=== PATIENT | male | born 1955 | race Asian ===

== ENCOUNTER 2023-04-26 09:04 | Emergency (ER) | payer MEDICARE, SELFPAY ==
[2023-04-26] VITALS (38 sets, daily range): BP systolic 130–194; BP diastolic 68–87; PULSE 52–64; RESP 16; TEMP 35.9; O2SAT 94–100; BMI 23.6
--- NOTE | 2023-04-26 09:20 | ED.CHESTPAIN ---
HPI - Chest Pain General Date Seen: 04/26/23 Chief Complaint: Chest Pain Stated Complaint: chest pain Time Seen by Provider: 04/26/23 09:19 History of Present Illness HPI narrative: 67-year-old male presents to the ER this morning for evaluation of chest pain. He was out shoveling snow about 5 hours prior to arrival when he developed some left-sided chest pain-rated 4/10. According to records from [facility], accessed through [facility] everywhere he has a past history of hypertension, type 2 diabetes, mixed hyperlipidemia, colon polyp lips, chronic hepatitis-B, previous lumbar fusion, cervical stenosis, previous gastric ulcer, He has a family history of coronary disease. Sisters and siblings have had stents. He was seen in the [facility] clinic on 03/26 for intermittent chest pain. Records indicate that he had a negative stress test in April 2021. Repeat stress test was ordered to be done outpatient after that clinic visit. That stress test was actually scheduled to happen this morning. History is obtained through the patient's son who interprets Azeri to Greenlandic for him. They declined the formal language line back tender cloth printing. Patient has the above past medical history. In addition he has been having some chest pain about 10 years ago that was related to a chest injury that was treated at [facility]. He has also had his gallbladder out. He did have some chest pains a couple of years ago for which he had a negative stress test. He has been having mild substernal and left-sided chest pain off and on for perhaps a year so again. In particular he has had 3 episodes recently. Because of chest pain that occurred in mid March he did see his doctor at [facility], and had the stress test ordered. It was supposed to have happened this morning. His most recent episode of chest pain was about a week ago that occurred while he was cooking and lasted for about half an hour and resolved with rest. This morning he was up early to do snow blowing. He was snow blowing at about 4:00 a.m.. It sounds like the chest pain started by around 5 either while he was snow blowing, or slightly after (unclear. Unable to clarify). The pain this morning is in the left anterolateral ribs in the lower ribs. It does not radiate to his back, down his arm, or up to his jaw. No other symptoms. No shortness of breath. No palpitations. No nausea. No dizziness. He has not been sweaty. No recent cough or fever. No swelling in his legs. He tried to go to the clinic for his stress test this morning with a referred him to the ER. Related Data Home Medications Medication Instructions Recorded Confirmed losartan 100 mg tablet 100 mg PO DAILY 04/26/23 04/26/23 metformin 500 mg tablet 1,000 mg PO BID 04/26/23 04/26/23 metoprolol succinate 100 mg 100 mg PO DAILY 04/26/23 04/26/23 tablet,extended release 24 hr simvastatin 40 mg tablet 40 mg PO QPM 04/26/23 04/26/23 Previous Rx's Medication Instructions Recorded aspirin 81 mg capsule 81 mg PO DAILY #14 caps 04/26/23 Allergies Allergy/AdvReac Type Severity Reaction Status Date / Time No Known Drug Allergies Allergy Verified 04/26/23 09:19 [facility] Social History Smoking Status: Never smoker How often do you have a drink containing alcohol: monthly or less How many standard drinks containing alcohol do you have on a typical day: 1 or 2 AUDIT-C Alcohol total score: 1 Non-prescribed substance use: denies use Exam Narrative Exam Narrative: Constitutional: Appears well-developed and well-nourished. Alert. Conversant with his son who translates. Non toxic. HENT: Head: Atraumatic. Nose: Nose normal. Mouth/Throat: Oral mucosa is clear and moist. no trismus. Pharynx normal. Tonsils symmetric. No tonsillar enlargement, erythema, or exudate. Eyes: Conjunctivae normal. EOM normal. Pupils equal, round, and reactive to light. No scleral icterus. Neck: Normal range of motion. Neck supple. No tracheal deviation present. No JVD Cardiovascular: Normal rate, regular rhythm. No gallop. No friction rub. No murmur heard. Symmetric radial and PT artery pulses Pulmonary/Chest: Effort normal. No stridor. No respiratory distress. No wheezes. No rales. No rhonchi . No tenderness. Abdominal: Soft. Bowel sounds normal. No distension. No mass. No tenderness. No rebound. No guarding. Healed laparoscopic abdominal incisions Musculoskeletal: RUE: Normal range of motion. No tenderness. No deformity LUE: Normal range of motion. No tenderness. No deformity RLE: Normal range of motion. No edema. No tenderness. No deformity LLE: Normal range of motion. No edema. No tenderness. No deformity Neurological: Alert and oriented to person, place, and time. Normal strength. CN II-VII intact. No sensory deficit. GCS eye subscore is 4. GCS verbal subscore is 5. GCS motor subscore is 6. Normal coordination Skin: Skin is warm and dry. No rash noted. No pallor. Normal capillary refill. Psychiatric: Normal mood. Normal affect. Const Vital Signs, click to edit/add: Vital Signs - 24 hr 04/26/23 09:14 04/26/23 09:14 04/26/23 09:15 Temperature 96.6 F L Pulse Rate 57 L 56 L Pulse Rate [Left Pulse Oximeter] 62 Respiratory Rate 16 Blood Pressure Blood Pressure [Left Upper Arm] 194/87 H Pulse Oximetry 99 100 100 Oxygen Delivery Method Room Air 04/26/23 09:22 04/26/23 09:30 04/26/23 09:43 Temperature Pulse Rate 57 L 59 L 57 L Pulse Rate [Left Pulse Oximeter] Respiratory Rate Blood Pressure 168/76 H 185/80 H Blood Pressure [Left Upper Arm] Pulse Oximetry 99 98 99 Oxygen Delivery Method 04/26/23 09:44 04/26/23 09:50 04/26/23 10:00 Temperature Pulse Rate 56 L 64 58 L Pulse Rate [Left Pulse Oximeter] Respiratory Rate Blood Pressure Blood Pressure [Left Upper Arm] Pulse Oximetry 99 98 97 Oxygen Delivery Method 04/26/23 10:02 04/26/23 10:15 04/26/23 10:21 Temperature Pulse Rate 60 55 L 56 L Pulse Rate [Left Pulse Oximeter] Respiratory Rate Blood Pressure 136/77 130/74 Blood Pressure [Left Upper Arm] Pulse Oximetry 96 96 94 Oxygen Delivery Method 04/26/23 10:30 04/26/23 10:42 04/26/23 10:45 Temperature Pulse Rate 54 L 54 L 56 L Pulse Rate [Left Pulse Oximeter] Respiratory Rate Blood Pressure 137/71 Blood Pressure [Left Upper Arm] Pulse Oximetry 95 96 97 Oxygen Delivery Method 04/26/23 11:00 04/26/23 11:02 04/26/23 11:15 Temperature Pulse Rate 57 L 57 L 53 L Pulse Rate [Left Pulse Oximeter] Respiratory Rate Blood Pressure 162/74 H Blood Pressure [Left Upper Arm] Pulse Oximetry 97 97 97 Oxygen Delivery Method 04/26/23 11:22 04/26/23 11:30 04/26/23 11:42 Temperature Pulse Rate 52 L 52 L 57 L Pulse Rate [Left Pulse Oximeter] Respiratory Rate Blood Pressure 144/74 H 136/68 Blood Pressure [Left Upper Arm] Pulse Oximetry 97 97 97 Oxygen Delivery Method 04/26/23 11:45 04/26/23 12:00 04/26/23 12:02 Temperature Pulse Rate 53 L 56 L 56 L Pulse Rate [Left Pulse Oximeter] Respiratory Rate Blood Pressure 137/69 Blood Pressure [Left Upper Arm] Pulse Oximetry 97 99 99 Oxygen Delivery Method 04/26/23 12:16 04/26/23 12:25 04/26/23 12:30 Temperature Pulse Rate 59 L 61 55 L Pulse Rate [Left Pulse Oximeter] Respiratory Rate Blood Pressure Blood Pressure [Left Upper Arm] Pulse Oximetry 98 99 98 Oxygen Delivery Method 04/26/23 12:45 04/26/23 12:46 04/26/23 13:00 Temperature Pulse Rate 55 L 58 L 58 L Pulse Rate [Left Pulse Oximeter] Respiratory Rate Blood Pressure Blood Pressure [Left Upper Arm] Pulse Oximetry 98 98 97 Oxygen Delivery Method 04/26/23 13:03 04/26/23 13:15 04/26/23 13:25 Temperature Pulse Rate 55 L 56 L 56 L Pulse Rate [Left Pulse Oximeter] Respiratory Rate Blood Pressure Blood Pressure [Left Upper Arm] Pulse Oximetry 99 97 97 Oxygen Delivery Method 04/26/23 13:26 04/26/23 13:30 04/26/23 13:45 Temperature Pulse Rate 57 L 58 L 55 L Pulse Rate [Left Pulse Oximeter] Respiratory Rate Blood Pressure Blood Pressure [Left Upper Arm] Pulse Oximetry 96 95 98 Oxygen Delivery Method 04/26/23 14:00 04/26/23 14:15 04/26/23 14:30 Temperature Pulse Rate 56 L 58 L 54 L Pulse Rate [Left Pulse Oximeter] Respiratory Rate Blood Pressure Blood Pressure [Left Upper Arm] Pulse Oximetry 96 98 95 Oxygen Delivery Method Course Course ED Course: Recheck-pain essentially resolved, perhaps residual at 1/10 after nitro. Blood pressure is 190/87 down to 130/74. Pulse rate still around 60. Patient says he feels fine. Reviewed follow-up EKGs which do not show any evolving ST-elevation and initial troponin is negative. Discussed with the patient and his son that the plan will be to get a 2nd troponin, around 12 or 12 30 to make sure it 6 hours out from onset of his pain. If that is negative would still need a stress test. He is high risk by the HEART-score (4 points). Vital Signs Vital signs: Initial Vital Signs Temperature 96.6 F L 04/26/23 09:14 Temperature Source Temporal Artery Scan 04/26/23 09:14 Pulse Rate 57 L 04/26/23 09:14 Pulse Rhythm Regular 04/26/23 09:14 Respiratory Rate 16 04/26/23 09:14 Blood Pressure 194/87 H 04/26/23 09:14 Blood Pressure Mean 122 H 04/26/23 09:14 Blood Pressure Position Sitting 04/26/23 09:14 Pulse Oximetry 99 04/26/23 09:14 Oxygen Delivery Method Room Air 04/26/23 09:14 Vital Signs Temperature 96.6 F L 04/26/23 09:14 Pulse Rate 57 L 04/26/23 09:14 Respiratory Rate 16 04/26/23 09:14 Blood Pressure 194/87 H 04/26/23 09:14 Pulse Oximetry 99 04/26/23 09:14 Oxygen Delivery Method Room Air 04/26/23 09:14 Temperature 96.6 F L 04/26/23 09:14 Pulse Rate 54 L 04/26/23 14:30 Respiratory Rate 16 04/26/23 09:14 Blood Pressure 137/69 04/26/23 12:02 Pulse Oximetry 95 04/26/23 14:30 Oxygen Delivery Method Room Air 04/26/23 09:14 Medications Administered Medications: Discontinued Medications Generic Name Dose Route Start Last Admin Trade Name Freq PRN Reason Stop Dose Admin Aspirin 162 mg 04/26/23 09:27 04/26/23 09:52 Aspirin 81 Mg Tab.Chew PO 04/26/23 09:28 162 mg ONCE ONE Administration Nitroglycerin 0.4 mg 04/26/23 09:27 04/26/23 09:53 Nitroglycerin 0.4 Mg Tab.Subl SUBLINGUAL 0.4 mg Q5M PRN Administration MDM - Chest Pain MDM Narrative Medical decision making narrative: This patient presents to the ER today for evaluation of chest pain this been happening intermittently for the past few weeks, about 3 episodes in the past month. He had an episode this morning that started around 4 5:00 a.m. around the time he finished up show filling and blowing snow. He was actually scheduled to have had an outpatient stress echo today (ordered by his primary care doctor last month). He tried to go to the clinic for that stress test appointment but was sent here to the ER. Differential for his chest pain was broad. No evidence of palpitations, syncope or other cardiac dysrhythmia. We considered possible ACS, however workup with serial EKGs and serial troponins is negative. Given time since onset of symptoms, I do not think the patient needs to be admitted for further sets of enzymes. HEART score is high risk - 4. History is in some respects concerning because his pain did get better with nitro here in the ER. In other respects it is not concerning because the pain actually began after he was snow blowing, not during snow blowing. There is no clear exertional component to his other more recent episodes of chest pain. And he has only had 3 episodes of pain through the entire last month. At this point with no evidence for active ACS, and only 1 episode of pain in the past couple of weeks, this is not a clear case of unstable angina. At this point will not admit for serial troponins. We attempted to get a stress test done for the patient here in the ER today to expedite his workup, but because of logistical problems it is not possible. Patient and his son would prefer discharge home. I have contacted the [facility], his primary care. Discussed with their on-call provider. He will pass the message through to make sure the patient gets expeditious follow-up and outpatient stress testing. Precautions for return to the ER reviewed. We will not prescribe any nitro. If the patient has any recurrent chest pain he should return to the ER immediately to be rechecked. We will start the patient on baby aspirin. EKG shows no evidence for pericarditis. Clinical presentation not suggestive of myocarditis. Chest x-ray shows no evidence for pneumonia, pneumothorax, pulmonary edema, pleural effusion, rib fracture, cardiomegaly. Mediastinum is normal on the x-ray. The patient has no ripping or tearing pain through to the back and has symmetric pulses on exam, no other acute neuro findings so I doubt aortic dissection. Risk of radiation and contrast exposure would outweigh the benefit of CT angiogram. We considered PE for this patient, however clinical presentation not suggestive. No tachycardia, hypoxia, difficulty breathing, or pleuritic component to his chest pain. No wheezing or bronchospasm to suggest COPD/asthma. No signs of chest wall cellulitis, shingles, injury. With reasonable clinical confidence, I think the patient is safe for outpatient follow up. Discussed return precautions. Questions answered. Patient voices comfort with the plan. Lab Data Labs: Lab Results 04/26/23 04/26/23 Range/Units 09:35 12:15 WBC 6.34 (4.50-11.00) K/uL RBC 5.24 (4.30-5.90) m/uL Hgb 13.0 L (13.5-17.5) gm/dL Hct 39.4 (37.0-53.0) % MCV 75 L (80-100) fL MCH 25 L (26-34) pg MCHC 33 (32-36) gm/dL RDW Coeff of Inessa 12.6 (11.5-15.5) % Plt Count 259 (140-440) K/uL Neut % (Auto) 68.1 (42.0-72.0) % Lymph % (Auto) 20.0 (20-44) % [place] % (Auto) 7.3 (0.0-11.0) % Eos % (Auto) 3.9 (0.0-7.0) % Baso % (Auto) 0.5 (0.0-3.0) % Neut # (Auto) 4.32 (1.7-7.0) K/uL Lymph # (Auto) 1.27 (0.90-2.90) K/uL [place] # (Auto) 0.50 (0.00-0.90) K/UL Eos # (Auto) 0.25 (0.00-0.50) K/uL Baso # (Auto) 0.03 (0.00-0.30) K/uL Abs Immat Gran (auto) 0.01 (0.00-0.30) K/uL Imm/Tot Granulo (auto) 0.2 % Sodium 140 (135-149) mmol/L Potassium 4.3 (3.6-5.1) mmol/L Chloride 105 (96-114) mmol/L Carbon Dioxide 24 (20-32) mmol/L Anion Gap 11 (7-15) mEq/L BUN 14 (7-30) mg/dL Creatinine 0.8 (0.5-1.5) mg/dL Estimated Creat Clear 51.57 Estimated GFR 96 ml/min Glucose 113 (60-115) mg/dL Calcium 9.2 (8.4-10.6) mg/dL Troponin I < 0.01 L < 0.01 L (0.01-0.04) ng/mL ECG Data Attestation: I personally reviewed and interpreted this ECG as follows: Interpretation: EKG #2 958am Sinus bradycardia. Rate 58 MI 156 QRS axis normal axis. No pathologic Q-waves. ST segment/T wave: No evolving ST segment elevation. QTc: 406 EKG #1 9:13am Sinus bradycardia rate 58 MI 152 QRS axis normal axis. No pathologic Q-waves. ST segment/T wave: No ST segment elevation or depression. Somewhat peaked T-waves in the lateral leads appear to be more peaked on our EKG compared to the EKG obtained at 8:41 a.m. in clinic. QTc: 408 EKG 8:41 a.m. from [facility] Normal sinus rhythm rate 61 MI 160 QRS axis normal axis ST segment/T wave: No ST segment elevation or depression Discharge Plan Discharge Clinical Impression: Chest pain Patient Disposition: Home, Self-Care Condition: Stable Instructions: Chest Pain (DC) Additional Instructions: Please come back to the ER right away if you have any more episodes of chest pain, or any episodes of trouble breathing, nausea, palpitations, or any other problems. Even if you continue to feel well, call your doctor at [facility] to arrange a stress test for your heart to be done as soon as possible. Prescriptions: New aspirin 81 mg capsule 81 mg PO DAILY Qty: 14 0RF No Action metformin 500 mg tablet 1,000 mg PO BID metoprolol succinate 100 mg tablet extended release 24 hr 100 mg PO DAILY simvastatin 40 mg tablet 40 mg PO QPM losartan 100 mg tablet 100 mg PO DAILY Follow Up/Referrals: Provider,Not a Local [Primary Care Provider] - Stand Alone Forms: [employer] Info Instructions
--- NOTE | 2023-04-26 09:27 | XR_ITS ---
Patient: SANTINO GARCIA FRANSICO Facility:?[facility] Patient ID:?[id number] Site Patient ID:?[id number]. Site :?[id number] Study:?XRay-Chest 2V-04/26/2023 9:53:36 AM Ordering Physician:?DR. MAYORGA Final Report: INDICATION: Chest pain TECHNIQUE: Chest 2 views COMPARISON: 04/04/2021 FINDINGS: No infiltrate or edema. No effusion or pneumothorax. Stable mediastinum. Degenerative changes both shoulders. Postop changes cholecystectomy. No fracture. IMPRESSION: No acute findings. Dictated by Giovanni Slaughter MD @ 04/26/2023 10:02:39 AM Signed by:?Giovanni Slaughter MD @04/26/2023 10:02:39 AM (Electronic Signature)
[2023-04-26 09:43] LABS: Basophils Absolute Auto 0.03 K/uL (0.00-0.30); Basophils Percent Auto 0.5 % (0.0-3.0); Eosinophils Absolute Auto 0.25 K/uL (0.00-0.50); Eosinophils Percent Auto 3.9 % (0.0-7.0); Hematocrit 39.4 % (37.0-53.0); Immature Granulocytes Abs Auto 0.01 K/uL (0.00-0.30); Immature Granulocytes Pct Auto 0.2 %; Lymphocytes Absolute Auto 1.27 K/uL (0.90-2.90); Mean Corpuscular HGB Conc 33 gm/dL (32-36); Mean Corpuscular Hemoglobin 25 pg (26-34); Mean Corpuscular Volume 75 fL (80-100); Monocytes Percent Auto 7.3 % (0.0-11.0); Neutrophils Absolute Auto 4.32 K/uL (1.7-7.0); Neutrophils Percent Auto 68.1 % (42.0-72.0); Platelet Count* 259 K/uL (140-440); RDW Coefficient of Variation % 12.6 % (11.5-15.5); Red Blood Count 5.24 m/uL (4.30-5.90); White Blood Count* 6.34 K/uL (4.50-11.00)
[2023-04-26 09:49] LABS: Slide Review Reflex No
[2023-04-26] MEDS: ASPIRIN 81 MG TAB.CHEW 162 MG PO (09:52)
[2023-04-26] MEDS: NITROGLYCERIN 0.4 MG TAB.SUBL SUBLINGUAL (09:53)
[2023-04-26 09:56] LABS: Chloride* 105 mmol/L (96-114); Potassium* 4.3 mmol/L (3.6-5.1); Sodium* 140 mmol/L (135-149)
[2023-04-26 09:59] LABS: Anion Gap 11 mEq/L (7-15); Blood Urea Nitrogen* 14 mg/dL (7-30); Calcium* 9.2 mg/dL (8.4-10.6); Carbon Dioxide* 24 mmol/L (20-32); Creatinine* 0.8 mg/dL (0.5-1.5); Est. Creatinine Clearance* 51.57; Estimated Glomerular Filt Rate 96 ml/min; Glucose* 113 mg/dL (60-115)
[2023-04-26 10:12] LABS: Troponin I* < 0.01 ng/mL (0.01-0.04)
--- NOTE | 2023-04-26 10:36 | ED.NURSE ---
Patient's chest pain and blood pressure is much improved after initial dose of nitro.
[2023-04-26 13:07] LABS: Troponin I* < 0.01 ng/mL (0.01-0.04)
--- NOTE | 2023-04-26 14:50 | ED.NURSE ---
Patient's son was utilized as refuse collector per patient's preference during the entirety of the time here in the ER.
== END 2023-04-26 14:54 | disposition home or self-care (01) ==
PROVIDERS: Emergency Provider Emergency Medicine
DX: R07.9 Chest pain, unspecified (principal)
CPT/HCPCS: 36415; 71046; 80048; 84484; 85025; 93005; 99283; 99284; 99285; A9270

== ENCOUNTER 2023-09-22 19:38 | Emergency (ER) | payer MEDICARE, SELFPAY ==
[2023-09-22 19:43] VITALS: BP 133/75; PULSE 64; RESP 20; TEMP 37; O2SAT 96; BMI 23.9
--- NOTE | 2023-09-22 20:19 | ED_ITS ---
HPI - Wound/Laceration General Chief Complaint: Laceration/Wound Stated Complaint: laceration left hand Time Seen by Provider: 09/22/23 20:00 History of Present Illness HPI narrative: This 68-year-old male comes in with a laceration on the dorsal aspect of his left thumb. He was using a knife to prepare some food and accidentally cut over the dorsal aspect of the 1st metacarpal. His tetanus status is up-to-date. Related Data Home Medications ?Medication ?Instructions ?Recorded ?Confirmed losartan 100 mg tablet 100 mg PO DAILY 04/26/23 09/22/23 metformin 500 mg tablet 1,000 mg PO BID 04/26/23 09/22/23 metoprolol succinate 100 mg 100 mg PO DAILY 04/26/23 09/22/23 tablet,extended release 24 hr simvastatin 40 mg tablet 40 mg PO QPM 04/26/23 09/22/23 Previous Rx's ?Medication ?Instructions ?Recorded aspirin 81 mg capsule 81 mg PO DAILY #14 caps 04/26/23 Allergies Allergy/AdvReac Type Severity Reaction Status Date / Time No Known Drug Allergies Allergy Verified 09/22/23 19:43 Review of Systems Status of ROS: Reports: 10 or more systems reviewed and unremarkable except as noted in History and below Narrative: Constitutional: No fevers, no weight gain or loss. Eyes: No discharge. No vision changes. HENT: No congestion, no sore throat, no ear pain. Cardiovascular: No chest pain, no palpitations. Respiratory: No shortness of breath, no wheezes, no cough. Gastrointestinal: No abdominal pain, no vomiting, no diarrhea. Genitourinary: No dysuria, no hematuria. Musculoskeletal: Normal range of motion. Skin: No rashes, no pruritis. Neurological: No dizziness, weakness, sensory change, speech change. Endo/Heme/Allergies: No bruising or bleeding. No polydipsia. Pysch: no suicidality, no anxiety, no insomnia. All other systems reviewed and are negative. PFSH PFSH Social History Smoking Status: Never smoker How often do you have a drink containing alcohol: monthly or less How many standard drinks containing alcohol do you have on a typical day: 1 or 2 AUDIT-C Alcohol total score: 1 Non-prescribed substance use: denies use Exam Narrative: Exam Narrative: Constitutional: Well-developed, well-nourished, no acute distress. HEENT: Normocephalic, atraumatic. Neck: Normal range of motion. Nontender. Supple. Heart: Intact distal pulses. Lungs: No chest discomfort. No wheezes, rhonchi, or rales. Abdomen: Nontender. Back: Normal range of motion. Extremities: Normal range of motion. 3 cm linear laceration over the dorsal aspect of the 1st metacarpal of the left hand. Skin: Intact. No rash. Warm. No erythema or pallor. Neurologic: No altered sensation. No weakness. Alert and oriented. Psychiatric: No suicidality. No anxiety or depression. No insomnia. Nursing notes and vitals signs are reviewed. Const: Vital Signs, click to edit/add: Vital Signs - 24 hr 09/22/23 19:43 Temperature 98.6 F Pulse Rate [Pulse Oximeter] 64 Respiratory Rate 20 Blood Pressure [Ri ght Upper Arm] 133/75 Pulse Oximetry 96 Oxygen Delivery Me thod Room Air Course Vital Signs Vital signs: Initial Vital Signs Temperature 98.6 F 09/22/23 19:43 Temperature Source Temporal Artery Scan 09/22/23 19:43 Pulse Rate 64 09/22/23 19:43 Pulse Rhythm Regular 09/22/23 19:43 Pulse Strength 3+ Normal 09/22/23 19:43 Respiratory Rate 20 09/22/23 19:43 Blood Pressure 133/75 09/22/23 19:43 Blood Pressure Mean 94 09/22/23 19:43 Blood Pressure Position Sitting 09/22/23 19:43 Pulse Oximetry 96 09/22/23 19:43 Oxygen Delivery Method Room Air 09/22/23 19:43 Vital Signs Temperature 98.6 F 09/22/23 19:43 Pulse Rate 64 09/22/23 19:43 Respiratory Rate 20 09/22/23 19:43 Blood Pressure 133/75 09/22/23 19:43 Pulse Oximetry 96 09/22/23 19:43 Oxygen Delivery Method Room Air 09/22/23 19:43 Temperature 98.6 F 09/22/23 19:43 Pulse Rate 64 09/22/23 19:43 Respiratory Rate 20 09/22/23 19:43 Blood Pressure 133/75 09/22/23 19:43 Pulse Oximetry 96 09/22/23 19:43 Oxygen Delivery Method Room Air 09/22/23 19:43 MDM - Wound/Laceration MDM Narrative Medical decision making narrative: This patient has a laceration of his left hand as described above. There is some small amount of persistent bleeding to wear this wound is best repaired with sutures. After anesthesia with 1% lidocaine without epinephrine the wound was cleansed and explored to its base. His tendon function is intact. Four sutures were placed using 4.0 Ethilon suture to approximate the wound. There is no further bleeding. A Band-Aid was applied. Instructions regarding wound care were given along with the need to return to clinic or urgent care in 7-10 days for suture removal. Discharge Plan Discharge Clinical Impression: Laceration Patient Disposition: Home, Self-Care Condition: Improved Additional Instructions: Keep wound clean and dry. Follow-up with clinic or urgent care in 7-10 days for suture removal. Prescriptions: No Action metformin 500 mg tablet 1,000 mg PO BID metoprolol succinate 100 mg tablet extended release 24 hr 100 mg PO DAILY simvastatin 40 mg tablet 40 mg PO QPM losartan 100 mg tablet 100 mg PO DAILY aspirin 81 mg capsule 81 mg PO DAILY Qty: 14 0RF Follow Up/Referrals: Provider,Not a Local [Primary Care Provider] - Stand Alone Forms: [employer] Info Instructions
--- OUTSIDE RECORDS SUMMARY | 2023-09-22 21:32 | XMS_ITS | Clinical Summary ---
Author Organization [facility] Address [place], [place] [address] Care Team Providers Care Ethylbenzene Oxidizer Name Role Phone SaqibShania MD Primary Care Provider Allergies No known active allergies Medications Medication Sig Dispensed Refills Start Date End Date Status propylene glycol 0.6 % ophthalmic solution Place into the eye(s). 0 08/30/2015 Active Kmjvl-0-MGC-EPA-Fish Oil (FISH OIL) 1,000 mg (120 mg-180 mg) cap Take by mouth. 0 01/25/2017 Active multivitamin (MVI) tablet Take 1 tablet by mouth once daily. 0 01/25/2017 Active aspirin chewable 81 mg chewable tabletIndications:Co ntrolled type 2 diabetes mellitus without complication, without long-term current use of insulin (HC) Take 1 tablet by mouth once daily with a meal. 0 05/02/2018 Active miscellaneous medical supply (Blood Pressure Cuff) miscIndications:Hype rtension As directed. Automated home BP cuff. Length of need 99. 1 Each 12/05/2021 Active metFORMIN (GLUCOPHAGE) 500 mg tabletIndications:Di abetes mellitus without complication (HC) Take 2 Tablets (1,000 mg) by mouth two times daily with meals. 360 Tablet 3 06/15/2022 Active blood-glucose meterIndications:Isabell betes mellitus without complication (HC) Dispense meter, test strips, lancets covered by pt ins. (Prodigy) E11.9 NIDDM type II - Test 1 time/day 1 Each 07/19/2022 Active blood sugar diagnostic (Blood Glucose Test) stripIndications:Isabell betes mellitus without complication (HC) Test 1 time per day. To go with prodigy meter 100 Each 03/26/2023 Active lancetsIndications:D iabetes mellitus without complication (HC) Test 1 times per day. 100 Each 03/26/2023 Active metoprolol succinate (Toprol XL) 100 mg Sustained-Release tabletIndications:Hy pertension Take 1 Tablet (100 mg) by mouth once daily. 90 Tablet 3 03/26/2023 Active nitroglycerin (NITROSTAT) 0.4 mg sublingual tabletIndications:Ot her forms of angina pectoris (HC) Place 1 Tablet (0.4 mg) under the tongue every 5 minutes if needed for Chest Pain. Up to 3 tablets in 15 minutes. 25 Tablet 3 05/29/2023 Active simvastatin (ZOCOR) 40 mg tabletIndications:Di abetes mellitus without complication (HC) Take 1 Tablet (40 mg) by mouth at bedtime. 90 Tablet 2 06/04/2023 Active losartan (COZAAR) 100 mg tabletIndications:Hy pertension Take 1 Tablet (100 mg) by mouth once daily. 90 Tablet 2 06/04/2023 Active Active Problems Problem Noted Date Diagnosed Date Unspecified inflammatory spo ndylopathy, sacral and sacrococcygeal region 04/11/2021 Chronic hepatitis B 04/11/2021 Mixed hyperlipidemia 08/30/2015 Adenomatous colon polyp 11/09/2014 Overview: Colonoscopy 10/2014 polyp repeat in 5 years Colonoscopy 07/2021 TA, repeat in 7 years Hypertension 06/05/2011 Left shoulder tendinosis and partial tearing Cervical spinal stenosis 06/04/2009 Type II or unspecified type diabetes mellitus without mention of complication, not stated as uncontrolled 07/12/2007 ABNORMAL LFTs 08/02/2006 S/P AP FUSION L4-S1 08/01/2006 Degeneration of cervical intervertebral disc Resolved Problems Problem Noted Date Diagnosed Date Resolved Date Hypertension 2011 2011 Degeneration of cervical intervertebral disc 0 06/04/2009 Fever and other physiologic disturbances of temperature regulation 08/02/2006 10/03/2013 Anemia, unspecified 08/02/2006 10/04/19 14 Hypocalcemia 08/02/2006 10/03/2013 Leukocytosis, unspecified 08/02/2006 Immunizations Name Administration Dates Next Due AMB Influenza, IIV3 (Age >=3 years)(Flu Clinic Only) 01/01/2008 COVID-19 vaccine (Pfizer-Bio NTech 30mcg/0.3mL) 12YO+ GIOVANNA-SUCROSE PF, MDV 08/15/2021 COVID-19 vaccine (Pfizer-Bio NTech 30mcg/0.3mL) PF, MDV 06/17/2020,05/27/2020 Influenza A (H1N1), Inactivated 02/23/2009 Influenza, High-dose Quadriv alent Inactivated 12/30/2022,12/21/2020 Influenza, IIV3 (Age 6-35 mos) 12/23/2010,2009 Influenza, IIV3 (Age >=3 years) 12/22/19 16,12/04/2014,01/29/2013,2011,12/23/2010,11/18/2009,01/01/2008,1 04/08/2006,01/05/2005,12/24/2002 Influenza, IIV4 12/24/2017 Influenza, IIV4 (=>6mos) MDV 11/28/2016 Influenza, Inactivated AIIV4 (Age 65+ Years) Preserv Free 11/21/2021,01/09/2020 Influenza, Inactivated IIV3 (Age 65+ Years) Preserv Free 02/28/2019 Pneumococcal Conj 20-valent (Prevnar 20) 11/21/2021 Pneumococcal Poly,23-Valent (Pneumovax) 11/18/2009 Pneumococcal conj 13-Valent (Prevnar 13) 02/28/2019 Td (Age >=7 Years) 04/19/2005 Td, Preservative Free (age > = 7 Years) 04/19/2005 Tdap 08/30/2015 Zoster (Shingrix-RZV, recombinant) 07/08/2021, Family History Medical History Relation Name Comments Diabetes Maternal Grandmother Other Mother liver cancer Relation Name Status Comments Maternal Grandmother Mother Social History Tobacco Use Types Packs/Day Years Used Date Smoking Tobacco: Never Smokeless Tobacco: Never Tobacco Cessation:Counseling Given: Yes Alcohol Use Standard Drinks/Week Comments Yes 0 (1 standard drink = 0.6 oz pur e alcohol) 1-2 beers every 2 weeks PHQ-2 Answer Date Recorded PHQ-2 TOTAL SCORE 0 09/20/2022 Social Connections Answer Date Recorded Frequency of Communication with Friends and Fami ly Not on file 08/21/2022 Financial Resource Strain Answer Date R ecorded Difficulty of Paying Living Expenses 3 08/15/2021 Difficulty of Paying Living Expenses Not on file 08/15/2021 Food Insecurity Answer Date Recorded Worried About Running Out of Food in the Last Ye ar 1 08/15/2021 Transportation Needs Answer Date Record ed Lack of Transportation (Medical) 1 08/15/2021 Housing Stability Answer Date Recorded Unable to Pay for Housing in the Last Year 1 08/15/2021 Sex and Gender Information Value Date Recorded Sex Assigned at Not on file Gender Identity Not on file Sexual Orientation Not on file Obstetrics History Last Filed Vital Signs Vital Sign Reading Time Taken Comments Blood Pressure 137/60 05/29/2023 9:08 AM CDT Pulse 65 05/29/2023 9:08 AM CDT Temperature 36.9 ??C (98.5 ??F) 08/15/2021 9:13 AM CD T Respiratory Rate 18 07/25/2016 9:08 AM CDT Oxygen Saturation 100% 05/29/2023 9:08 AM CDT Inhaled Oxygen Concentration - - Weight 60 kg (132 lb 4.8 oz) 05/29/2023 9:08 AM CDT Height 154 cm (5' 0.63) 05/29/2023 9:08 AM CDT Body Mass Index 25.3 05/29/2023 9:08 AM CDT Plan of Treatment Upcoming Encounters Date Type Department Care Team (Late st Contact Info) Description 09/26/2023 8:25 AM CDT Office Visit [facility] [address] [place] [address] Shania Cerrato MD [address] [place] [address] Health Maintenance Due Date Last Done Comments COVID-19 vaccine series ( season) 2022 08/15/2021, 01/11/2021, 06/17/2020, Additional history exists Depression screening for age 12+ 09/21/2023 09/20/2022, 08/15/2021, 08/15/2021, Additional history exists Medicare Wellness for age 65+ 09/21/2023, 08/15/2021, 03/09/2014 Influenza for age 65+ 11/11/2023 12/30/2022 , 11/21/2021, 12/21/2020, Additional history exists BMI (ht and wt on same day) for age 18+ 05/28/2024 05/29/2023, 09/20/2022, 06/15/2022, Additional history exists Tetanus booster 08/29/2025 08/30/2015, 10/2005, 04/19/2005 Colonoscopy through age 75 07/13/202607/13, 07/13/2021, 07/13/2021, Additional history exists Lipids for age 45-75 03/26/2028 03/26/2023, 06/15/2022, 05/09/2021, Additional history exists Tdap Completed 08/30/2015 Hepatitis C screening for ag e 18-79 Completed 02/28/2019 Zoster (shingles) series for age 50+ Completed 07/08/2021, 05/09/2021 Pneumococcal series for age 65+ Completed 11/21/2021, 02/28/2019, 11/18/2009 Medical Devices Implanted Type Area Professor Of Apologetics Device Identifier Shelf Expiration Date Model / Serial / Lot [id number] Precision [id number] [[id number]] Implanted:Qty: 1 on 08/01/[address] [facility] Explanted:at [facility] (Quantity not on file) Spine [employer] 05/15/2011 [id number]# / [id number] / [id number] Precision 14x26 Fz [[id number]] Implanted:Qty: 1 on 08/01/[address] [facility] Explanted:at [facility] (Quantity not on file) Spine [employer] 06/07/2011 [id number]# / [id number] / [id number] Canclls Crushed 30cc [[id number]] Implanted:Qty: 1 on 08/01/[address] [facility] Explanted:at [facility] (Quantity not on file) Spine [employer] 04/24/2011 [id number]# / [id number] / Kit Infuse Lg [id number] - [id number] Implanted:Qty: 1 on 08/01/[address] [facility] Spine [employer] [id number]# / / [id number] Screw Polyaxial 6.5x40mm - [id number] Implanted:Qty: 4 on 08/01/[address] [facility]ine [facility] [id number] / / Screw Polyaxial 6.5x45mm - [id number] Implanted:Qty: 1 [facility] 08[facility]01/2006 [facility] [id number]# / / Veda Shivani [id number] - [id number] Implanted:Qty: 6 on 08/01/[address] [facility] Spine [facility] [id number]# / / Graham Shivani Rad 60mm 108mm Radius - [id number] Implanted:Qty: 2 on 08/01/[address] [facility] Spine [employer] [id number] / / Screw Polyaxial 6.5x35mm - [id number] Implanted:Qty: 1 on 08/01/[address] [facility] Spine [facility] [id number] / / Procedures Procedure Name Priority Date/Time Associated Diagnosis Comments LIPID PANEL W REFLEX MEASURED LDL Routine 03/26/2023 9:02 AM FITTER PLACER Mixed hyperlipidemia COLONOSCOPY SCREENING Routine 07/13/2021 8:37 AM CDT History of colon polyps ANTI HCV Routine 02/28/2019 9:33 AM FITTER PLACER Chronic hepatitis B (HC) from Last 3 Months or Most Recently Relevant to Health Maintenance Results * (ABNORMAL) LIPID PANEL W REFLEX MEASURED LDL (03/26/2023 9:02 AM FITTER PLACER) CHOLESTEROL,TOTAL 125 100 - 199 mg/dL 03/26/2023 7:28 PM FITTER PLACER [facility] Comment: Cholesterol, Total Reference Ranges Desirable <200 mg/dL Borderline 200-239 mg/dL High >=240 mg/dL TRIGLYCERIDES 139 <150 mg/dL 03/26/2023 7:28 PM [facility] HDL CHOLESTEROL 34(L) >40 mg/dL 7:28 PM [facility] NON-HDL CHOLESTEROL 91 <145 mg/dl 03/26/2023 7:28 PM [facility] CHOL/HDL RATIO 3.68 <4.50 03/26/2023 7:28 PM [facility] LDL CHOLESTEROL 63 <=130 mg/dL 03/26/2023 7:28 PM [facility] VLDL CHOLESTEROL 28 <=30 mg/dL 03/26/2023 7:28 PM [facility] PROVIDER ORDERED STATUS RANDOM 03/26/2023 7:28 PM [facility] Blood BLOOD SPECIMEN / Unknown Venipuncture / Unknown 03/26/2023 9:02 AM FITTER PLACER 03/26/2023 9:04 AM FITTER PLACER Shania Cerrato MD CHEMISTRY [facility] [address] [place] [address], * COLONOSCOPY (07/13/2021 9:01 AM CDT) 07/13/2021 9:01 AM CDT Narrative Transcriptions Minesh Howard MD - 07/13/2021 9:40 AM CDT Patient Name: Do Procedure Date: 07/13/2021 Gender: Male Date of : 1955 Admit Type: Outpatient Procedure: Colonoscopy Proceduralist: Minesh Howard MD , Ely Austin, RN(Nurse) Referring MD: Shania Cerrato Indications/Pre-Op Diagnosis: High risk colon cancer surveillance:Personal history of adenoma less than 10 mm in size, Last colonoscopy: October 2014 Medications: Fentanyl 100 micrograms IV, Midazolam 2 mgIV, The level of sedation administered wasmoderate Procedure Description: The patient had risks, benefits and alternatives explained to andgave informed consent. The patient had a stable cardiopulmonary status and judged an adequate candidate for conscious sedation. The [id number] was passed through the anus and advanced tothe cecum, identified by appendiceal orifice and ileocecal valve. The colonoscopy was performed without difficulty. The patient toleratedthe procedure well. The quality of the bowel preparation was good. The ileocecal valve, appendiceal orifice, and rectum were photographed. Complications: No immediate complications. Estimated Blood Loss & Specimen: Estimated blood loss: none. Specimen collected - Yes and sent to Laboratory Findings: The perianal and digital rectal examinations were normal. A 2 mm polyp was found in the cecum. The polyp was sessile. The polyp was removed with a cold biopsy forceps. Resection and retrieval were complete. A 3 mm polyp was found in the rectum. The polyp was sessile. Thepolyp was removed with a cold snare. Resection and retrieval werecomplete. The exam was otherwise without abnormality. Impressions/Post-Op Diagnosis: - One 2 mm polyp in the cecum, removed with a cold biopsy forceps. Resected and retrieved. - One 3 mm polyp in the rectum, removed with a cold snare. Resectedand retrieved. - The examination was otherwise normal. Recommendation: - Patient has a contact number available for emergencies. The signsand symptoms of potential delayed complications were discussed with the patient. Return to normal activities tomorrow. Written discharge instructions were provided to the patient. - Resume previous diet. - Continue present medications. - Await pathology results. - Repeat colonoscopy is recommended. The colonoscopy date will be determined after pathology results from today's exam become available for review. Moderate Sedation: Moderate (conscious) sedation was administered by the endoscopy nurse and supervised by the endoscopist. The following parameters were monitored: oxygen saturation, heart rate, respiratory rate, blood pressure, adequacy of pulmonary ventilation and reponse to care. Please refer to the patient's medical record flowsheets and nursing notes for moderate sedation details. Total physician intraservice time was *16 minutes. Minesh Howard MD 07/13/2021 9:40:35 AM This report has been signed electronically. Note Initiated On: 07/13/2021 9:01 AM Procedure Code(s): --- Professional --- 38482, Colonoscopy, flexible; with removalof tumor(s), polyp(s), or other lesion(s) bysnare technique 84323, 59, Colonoscopy, flexible; withbiopsy, single or multiple Diagnosis Code(s): --- Professional --- Z86.010, Personal history of colonicpolyps K63.5, Polyp of colon K62.1, Rectal polyp CPT copyright 2020 [employer]. All rights reserved. The codes documented in this report are preliminary and upon cinder pit worker reviewmay be revised to meet current compliance requirements. Scope In: 9:19:22 AM Scope Withdrawal Time 0 hours 8 minutes 54 seconds Scope Out: 9:34:03 AM Minesh Howard MD PROCEDURE ORD * ANTI HCV (02/28/2019 9:33 AM FITTER PLACER) HEPATITIS C ANTIBODY Non-React tremaine Non-React tremaine 02/28/2019 6:13 PM FITTER PLACER [facility] Comment:Antibodies to HCV no t detected; does not exclude the possibility of exposure to HCV. Blood BLOOD SPECIMEN / Unknown Venipuncture / Unknown 02/28/2019 9:33 AM FITTER PLACER 02/28/2019 9:33 AM FITTER PLACER Giovanni Ordaz MD SEND [facility] [address] [place] [address], from Last 3 Months or Most Recently Relevant to Health Maintenance Advance Directives * Full Code (Latest Code Status on File) Date Activated Date Inactivated Comments 02/11/2008 10:05 AM 02/12/2008 3:31 PM * Full Code Date Activated Date Inactivated Comments 02/11/2008 10:04 AM 02/11/2008 10:05 AM * Full Code Date Activated Date Inactivated Comments 02/11/2008 6:33 AM 02/11/2008 10:04 AM * Full Code Date Activated Date Inactivated Comments 08/01/2006 2:42 PM 08/07/2006 1:12 PM * Full Code Date Activated Date Inactivated Comments 08/01/2006 5:57 AM 08/01/2006 2:42 PM Care Teams Ethylbenzene Oxidizer Relationship Specialty Start Date End Date Shania [place] [address] PCP - General Family Practice 04/11/21"
--- OUTSIDE RECORDS SUMMARY | 2023-09-22 21:32 | XMS_ITS | Continuity of Care Document ---
Author Organization [facility] Address [address] [place] [address] Phone Care Team Providers Care Waterproof Material Folder Name Role Phone Rafat HILL, Amir Unavailable Unavailable Medications Medication Instructions Dosage Effective Dates (start - stop) Status Comments Neurontin 100 mg Cap take 1 Capsule (100 MG) by ORAL route 3 times every day 100 MG - Active Procedures Procedure Date Office/outpatient visit,est, low 2008 X-ray exam lower spine 2-3 views 2008 Postop followup visit Remove spine seg fixation dev, post PA Assist Remove spine seg fixation dev, post Office/outpatient visit,est, low 2007 X-ray exam lower spine 2-3 views 2007 Office/outpatient visit,est, low 2007 Office/outpatient visit,est, low 2006 X-ray exam of neck spine2-3 views X-ray exam lower spine 2-3 views 2006 Office/outpatient visit,est, low 2006 X-ray exam lower spine 2-3 views 2006 Postop followup visit X-ray exam lower spine 2-3 views 2006 [place] Lumbar spine fusion w/bone graft [place] Spinal fusion, ea add'l interspac e Laminotomy, reexplr 1 intrspc lumbr Insert spine seg fix, post, 3-6 seg Apply spinal prosthetic device 07 Aspiration, bone marrow Lumbar spine fusion, posterolateral Spine fusion, each add'lvertebra 2006 Allograft, spine surg, morselized Autograft, spine surgery, local 007 PA Assist Lumbar spine fusion, posterola teral PA Assist Spine fusion, each add'lverteb ra PA Assist Insert spine seg fix, post, 3- 6 seg Office/outpatient visit,est, low 2006 Office/outpatient visit,est, mod 2006 X-ray exam lwr spine, min 4 views Advance Directives Directive Yes / No Effective Date File Name No Information Encounters Encounter Description Practice Location Reason(s) For Visit Diagnoses Date Provider Providers Copied on Encounter [facility], [address] [facility] [address], [place], [place], [facility], tel:[phone] No Information Nov-2 2-200 9 Mehbod Amir. [facility] [place], [address], [place], [place], [id number] , [place]. tel:[phone] Office/outpat ient visit,est, low [facility], [address] [facility] [address], [place], [address], [place] tel:[phone] [place] [place] No Information Oct-2 4-200 9 Mehbod Amir. [facility] [place], [address] [place] [address] [address], [place], [place], [id number] , [place]. tel:[phone] [facility] [place], [address] [facility] [address], [place], [address], [place] tel:[phone] [employer] [place] No Information Apr-2 3-200 9 Mehbod Amir. [facility] [place], [address], [place], [place], [id number] , [place]. tel:[phone] [facility] [place], [address] [facility] [address], [place], [place], [facility], [place] tel:[phone] [facility] No Information Dec-0 3-200 8 Mehbod Amir. [facility] [place], [address] [place] [address] [address], [place], [place], [id number] , [place]. tel:[phone] Office/outpat ient visit,est, low [facility], [address], [place], [place], [facility], [place] tel:[phone] [employer] No Information Aug-0 6-200 8 Mehbod Amir. [facility], [address], [place], [place], [id number] , [place]. tel:[phone] Office/outpat ient visit,est, low [facility], [address], [place], [place], [facility], [place] tel:[phone] [employer] [facility] [employer] No Information Mar-0 3-200 8 Mehbod Amir. [facility], [address] [facility] [address], [place], [place], [id number] , [place]. tel:[phone] Office/outpat ient visit,est, low [facility], [address], [place], [place], [facility], [place] tel:[phone] [employer] [place] No Information Dec-1 0-200 7 Mehbod Amir. [facility], [address] [facility] [address], [place], [place], [id number] , [place]. tel: Office/outpat ient visit,est, low [facility], [address], [place], [place], [facility], [place] tel:[phone] [employer] No Information Sep-1 0-200 7 Mehbod Amir. [facility], [address], [place], [place], [id number] , [place]. tel: [facility], [address], [place], [place], [facility], [place] tel:[phone] [employer] No Information Abilio-1 6-200 7 Mehbod Amir. [facility], [address] [facility] [address], [place], [place], [id number] , [place]. tel: [phone] [facility], [address], [place], [address], [place] tel:[phone] [facility] No Information 9-200 7 Mehbod Amir. [facility], [address], [place], [place], [id number] , [place]. tel: [phone] Office/outpat ient visit,est, low [facility], [address], [place], [address], [place] tel:[phone] [employer] No Information 3200 7 Mehbod Amir. [facility] [place], [address] [place] [address] [address], [place], [place], [id number] , [place]. tel: [phone] Office/outpat ient visit,est, mod [facility], [address] [place], [place] [address], [place], [place], [facility], [place] tel:[phone] [employer] No Information 9-200 7 Mehbod Amir. [facility] [place], [address], [place], [place], [id number] , [place]. tel: [phone] Family History Family Member Type Diagnosis Age At Onset No Information Payers Payer name Insurance type Covered alliance party ID Authorjolenea niru(s) Medicare [id number] Social History Type Description Quantity Date Captured Comments Sex Male Smoking Status No Information Chief Complaint And Reason For Visit No Information Reason For Referral Reason For Referral No Information History Of Present Illness Encounter Date Complaint History Of Prese nt Illness No Information Functional Status Date Functional Assessmen t No Information Instructions Date Instruction Additional Infor mation No Information Assessments Type Assessment Date No Information Patient Care Teams Name Effective Dates (start - stop) Status Members No Information
--- OUTSIDE RECORDS SUMMARY | 2023-09-22 21:32 | XMS_ITS | Continuity of Care Document ---
Author Organization [facility] Address [address] [place] [address] Phone Care Team Providers Care Service Cleaner Name Role Phone Rafat HILL, Amir Unavailable [...] Date Provider Providers Copied on Encounter [facility], [address] [facility] [address], [place], [place], [facility], tel:[phone] No Information Nov-2 2-200 9 Mehbod Amir. [facility], [address], [place], [place], [id number] , [place]. tel:[phone] Office/outpat ient visit,est, low [facility], [address] [facility] [address], [place], [address], [place] tel:[phone] [employer] No Information Oct-2 4-200 9 Mehbod Amir. [facility], [address] [place] [address] [address], [place], [place], [id number] , [place]. tel:[phone] [facility], [address] [address], [place], [address], [place] tel:[phone] [employer] No Information Apr-2 3-200 9 Mehbod Amir. [facility], [address], [place], [place], [id number] , [place]. tel:[phone] [facility], [address] [address], [place], [place], [facility], [place] tel:[phone] [facility] No Information Dec-0 3-200 8 Mehbod Amir. [facility], [address] [place] [address] [address], [place], [place], [id number] , [place]. tel:[phone] Office/outpat ient visit,est, low [facility], [address], [place], [place], [facility], [place] tel:[phone] [employer] No Information Aug-0 6-200 8 Mehbod Amir. [facility], [address], [place], [place], [id number] , [place]. tel:[phone] Office/outpat ient visit,est, low [facility], [address], [place], [place], [facility], [place] tel:[phone] [employer] [facility] [employer] No Information Mar-0 3-200 8 Mehbod Amir. [facility], [address], [place], [place], [id number] , [place]. tel:[phone] Office/outpat ient visit,est, low [facility], [address], [place], [place], [facility], [place] tel:[phone] [employer] No Information Dec-1 0-200 7 Mehbod Amir. [facility], [address], [place], [place], [id number] , [place]. tel: Office/outpat ient visit,est, low [facility], [address], [place], [place], [facility], [place] tel:[phone] [facility] [facility] No Information Sep-1 0-200 7 Mehbod Amir. [facility], [address], [place], [place], [id number] , [place]. tel: Z [facility], [address], [place], [place], [facility], [place] tel:[phone] [employer] No Information Abilio-1 6-200 7 Mehbod Amir. [facility], [address], [place], [place], [id number] , [place]. tel: [phone] [facility], [address], [place], [address], [place] tel:[phone] [facility] No Information 9-200 7 Mehbod Amir. [facility], [address], [place], [place], [id number] , [place]. tel: [phone] Office/outpat ient visit,est, low [facility], [address], [place], [address], [place] tel:[phone] [facility] No Information 3200 7 Mehbod Amir. [facility], [address] [place] [address] [address], [place], [place], [id number] , [place]. tel: [phone] Office/outpat ient visit,est, mod [facility], [address] [place], [place] [address], [place], [place], [facility], [place] tel:[phone] [facility] No Information 9-200 7 Mehbod Amir. [facility], [address], [place], [place], [id number] , [place]. tel: [phone] Family History Family Member Type Diagnosis Age At Onset No Information Payers Payer name Insurance type Covered constitution party ID Authorjolenea niru(s) Medicare [id number] Social History Type Description Quantity Date Captured [...]
== END 2023-09-22 21:41 | disposition home or self-care (01) ==
LOC: ED 21:30
PROVIDERS: Emergency Provider Emergency Medicine Emergency Medical Services
DX: S61.012A Laceration without foreign body of left thumb without damage to nail, initial encounter (principal); W26.0XXA Contact with knife, initial encounter
CPT/HCPCS: 12002; 99283; 99284